=== PATIENT | female | born 1995 | race African-American/Black ===

== ENCOUNTER 2019-09-21 02:12 | Emergency (ER) | payer OTHER ==
[~2019-09-21] VITALS: Ht 172.7 cm; Wt 59.0 kg
[~2019-09-21 02:12] MED LIST: BIRTH CONTROL PILLS
[2019-09-21] MEDS ORDERED: TETANUS, DIPHTHERIA, PERTUSSIS VAC/PF 0.5ML (>7YR OLD) IM ONE (02:30)
[2019-09-21] MEDS ORDERED: BACITRACIN ZINC OINT UDPKT TOP ONE (02:30)
[2019-09-21] MEDS ORDERED: IBUPROFEN 600MG TABLET PO ONE (02:30)
[2019-09-21] MEDS ORDERED: LIDOCAINE HCL/PF 1% 10 MG/ML 5ML VIAL IJ ONE (02:30)
[2019-09-21 03:30] VITALS: BP 109/55
== END 2019-09-21 03:44 | disposition home or self-care (01) ==
LOC: ER 02:12
DX: S71.111A Laceration without foreign body, right thigh, initial encounter (principal); X99.1XXA Assault by knife, initial encounter; Y07.03 Male partner, perpetrator of maltreatment and neglect; R03.0 Elevated blood-pressure reading, without diagnosis of hypertension; Y93.89 Activity, other specified; Y92.098 Other place in other non-institutional residence as the place of occurrence of the external cause; Z23 Encounter for immunization
CPT/HCPCS: 12001; 90471; 90715; 99283; J3490

== ENCOUNTER 2019-10-03 18:20 | Emergency (ER) | payer OTHER ==
[~2019-10-03] VITALS: Ht 170.2 cm; Wt 54.5 kg
[2019-10-03 19:48] VITALS: BP 122/79
== END 2019-10-03 19:50 | disposition home or self-care (01) ==
LOC: ER 18:20
DX: S81.011D Laceration without foreign body, right knee, subsequent encounter (principal); X58.XXXD Exposure to other specified factors, subsequent encounter; F12.10 Cannabis abuse, uncomplicated
CPT/HCPCS: 99281

== ENCOUNTER 2020-08-11 01:08 | Emergency (ER) | payer OTHER ==
[~2020-08-11] VITALS: Ht 170.2 cm; Wt 52.3 kg
[2020-08-11] MEDS ORDERED: FAMOTIDINE 20MG/2ML VIAL IV STA (01:33)
[2020-08-11] MEDS ORDERED: METOCLOPRAMIDE HCL 10MG/2ML VIAL IV STA (01:33)
[2020-08-11] MEDS ORDERED: KETOROLAC 30MG/ML VIAL IV STA (01:33)
[2020-08-11] MEDS ORDERED: SODIUM CHLORIDE 0.9% 1,000 ML IV ONE (01:45)
[2020-08-11] MEDS ORDERED: DIPHENHYDRAMINE 50MG/ML VIAL IV ONE (01:45)
[2020-08-11 02:16] LABS: HEMATOCRIT. 37.6 % (36.0-48.0); HEMOGLOBIN. 12.6 g/dL (12.0-16.0); MEAN CORPUSCULAR HEMOGLOBIN 31.4 pg (28.0-32.0); MEAN CORPUSCULAR VOLUME 93.9 fL (81.0-99.0); MEAN PLATELET VOLUME 8.3 fl (7.4-10.4); PLATELET 268 x1000/uL (130-400); RED BLOOD CELL COUNT 4.01 mill/uL (4.2-5.4); RED CELL DISTRIBUTION WIDTH 13.7 % (11.6-14.6)
[2020-08-11 02:26] LABS: INR 1.1
[2020-08-11 02:33] LABS: CHLORIDE 103 mEq/L (98-107)
[2020-08-11 02:38] LABS: ETHANOL BLOOD < 10 mg/dL
[2020-08-11 02:40] LABS: HCG SCREEN NEGATIVE
[2020-08-11 03:03] LABS: CLARITY URINE CLOUDY (CLEAR); COLOR URINE YELLOW (YELLOW); KETONES URINE 3+ (NEGATIVE); LEUKOCYTE ESTERASE URINE TRACE (NEGATIVE); NITRITE URINE NEGATIVE (NEGATIVE); OCCULT BLOOD URINE NEGATIVE (NEGATIVE); PH URINE 5.5 (4.5-8.0); PROTEIN URINE 1+ (NEGATIVE); SPECIFIC GRAVITY URINE 1.027 (1.005-1.030)
[2020-08-11 03:12] LABS: *AMPHETAMINES SCREEN URINE NEGATIVE (NEGATIVE); *BARBITURATES SCREEN URINE NEGATIVE (NEGATIVE); *BENZODIAZEPINES SCREEN URINE NEGATIVE (NEGATIVE)
[2020-08-11 03:13] LABS: *COCAINE SCREEN URINE NEGATIVE (NEGATIVE); CANNABINOID URINE SCREEN PRESUMTIVE POSITIVE (NEGATIVE); METHADONE URINE SCREEN NEGATIVE (NEGATIVE); OPIATES URINE SCREEN NEGATIVE (NEGATIVE); PHENCYCLIDINE URINE SCREEN NEGATIVE (NEGATIVE)
[2020-08-11 04:00] VITALS: BP 97/52
[2020-08-11 04:03] LABS: PLATELET ESTIMATE NORMAL
[2020-08-11] MEDS ORDERED: METO-293 MT (04:06)
[2020-08-11] MEDS ORDERED: ONDA4TAB5 MT (04:06)
== END 2020-08-11 04:30 | disposition home or self-care (01) ==
LOC: ER 01:42
DX: F12.188 Cannabis abuse with other cannabis-induced disorder (principal); E86.0 Dehydration
CPT/HCPCS: 36415; 80053; 80305; 80320; 81003; 83690; 84703; 85025; 85610; 93005; 96361; 96374; 96375; 99284; J1200; J1885; J2765; J3490; J7030; G0480

== ENCOUNTER 2021-05-01 09:59 | Emergency (ER) | payer OTHER ==
[~2021-05-01] VITALS: Ht 170.2 cm; Wt 54.0 kg
[~2021-05-01 09:59] MED LIST changes: +METO-293 MT; +ONDA4TAB5 MT
[2021-05-01] MEDS ORDERED: ONDANSETRON HCL 4MG/2ML INJ IV STA ×2 (10:13→10:22)
[2021-05-01] MEDS ORDERED: MORPHINE SULFATE 2 MG/ML CPJ (NOT FOR IM USE) IV ONE (10:15)
[2021-05-01] MEDS ORDERED: SODIUM CHLORIDE 0.9% 1,000 ML IV ONE (10:15)
[2021-05-01 10:58] LABS: BASOPHILS % 0.5 % (0.0-2.0); EOSINOPHILS % 0.4 % (0.0-5.0); HEMATOCRIT. 32.7 % (36.0-48.0); HEMOGLOBIN. 10.3 g/dL (12.0-16.0); LYMPHOCYTES % 16.1 % (20.0-50.0); MEAN CORPUSCULAR HEMOGLOBIN 25.5 pg (28.0-32.0); MEAN CORPUSCULAR VOLUME 81.1 fL (81.0-99.0); MEAN PLATELET VOLUME 8.2 fl (7.4-10.4); MONOCYTES % 6.1 % (2.0-8.0); NEUTROPHILS % 76.9 % (40.0-76.0); PLATELET 314 x1000/uL (130-400); RED BLOOD CELL COUNT 4.03 mill/uL (4.2-5.4); RED CELL DISTRIBUTION WIDTH 19.2 % (11.6-14.6)
[2021-05-01 11:05] LABS: CHLORIDE 109 mEq/L (98-107)
[2021-05-01 12:41] LABS: HCG SCREEN NEGATIVE
[2021-05-01] MEDS ORDERED: TOPUD PO (13:11)
[2021-05-01] MEDS ORDERED: ONDA4TAB5 PO (13:11)
[2021-05-01 13:33] VITALS: BP 125/76
[2021-05-01 13:47] LABS: CLARITY URINE CLEAR (CLEAR); COLOR URINE YELLOW (YELLOW); KETONES URINE 3+ (NEGATIVE); LEUKOCYTE ESTERASE URINE NEGATIVE (NEGATIVE); NITRITE URINE NEGATIVE (NEGATIVE); OCCULT BLOOD URINE 2+ (NEGATIVE); PROTEIN URINE 1+ (NEGATIVE); SPECIFIC GRAVITY URINE 1.023 (1.005-1.030); UROBILINOGEN URINE 0.2 E.U./dL (0.2-1.0)
== END 2021-05-01 13:35 | disposition home or self-care (01) ==
LOC: ER 09:59
DX: R10.11 Right upper quadrant pain (principal); R11.2 Nausea with vomiting, unspecified; D64.9 Anemia, unspecified
CPT/HCPCS: 36415; 80053; 81003; 81025; 83690; 84703; 85025; 93005; 96361; 96374; 96375; 99284; J2270; J2405; J7030

== ENCOUNTER 2022-09-09 03:57 | Emergency (ER) | payer OTHER ==
[~2022-09-09] VITALS: Ht 170.2 cm; Wt 52.4 kg
[~2022-09-09 03:57] MED LIST changes: +ONDA4TAB5 PO; +TOPUD PO
[2022-09-09 04:16] VITALS: BP 111/66
[2022-09-09] MEDS ORDERED: ACETAMINOPHEN 325MG TABLET PO ONE (08:00)
[2022-09-09] MEDS ORDERED: IBUPROFEN 400MG TABLET PO ONE (08:00)
[2022-09-09] MEDS ORDERED: IBUP-2028 MT (09:24)
== END 2022-09-09 09:40 | disposition home or self-care (01) ==
LOC: ER 03:57
DX: M25.512 Pain in left shoulder (principal); M54.9 Dorsalgia, unspecified; V49.59XA Passenger injured in collision with other motor vehicles in traffic accident, initial encounter; Y93.89 Activity, other specified; Y92.89 Other specified places as the place of occurrence of the external cause; Y99.8 Other external cause status; F12.10 Cannabis abuse, uncomplicated; Z79.899 Other long term (current) drug therapy
CPT/HCPCS: 73030; 81025; 99283

== ENCOUNTER 2024-06-02 16:44 | Emergency (ER) | payer MEDICAID, OTHER ==
[~2024-06-02] VITALS: Ht 170.2 cm; Wt 59.0 kg
[~2024-06-02 16:44] MED LIST changes: +IBUP-2028 MT
[2024-06-02 17:13] VITALS: O2SAT 98
[2024-06-02 21:20] VITALS: BP 106/50; PULSE 80; RESP 12; TEMP 37.11408; O2SAT 100
== END 2024-06-02 21:20 | disposition home or self-care (01) ==
LOC: ER 16:44
DX: R05.9 Cough, unspecified (principal); F12.90 Cannabis use, unspecified, uncomplicated
CPT/HCPCS: 71045; 99283